=== PATIENT | female | born 1990 | race Caucasian/White ===

== ENCOUNTER 2022-10-01 11:28 | Observation (INO) | payer BC, SELFPAY ==
--- NOTE | 2022-10-01 11:58 | P.TNLD_ITS ---
Visit Information Visit Information Date of evaluation: 10/01/22 On-call OB Provider: Susan Ornelas Comments/Additional reasons for admission: 32yo at 24+w here after a fall at home. The pt reports that last night she slipped when coming down the stairs, and fell onto her right side and right shoulder. She felt a small gush of fluid immediately at the time of the fall. She denies any fluid leaking since then. She denies any abdominal pain, cramping, contractions, or vaginal bleeding since the fall. She only has mild right sided abdominal/shoulder pain. [facility] Medical History ADHD (~2000) Anxiety (~2006) Asthma (~1994) Chronic neck pain Depression, recurrent Generalized anxiety disorder PTSD (post-traumatic stress disorder) (~2006) Right wrist pain Surgical History [place] teeth removed (~2010) Family History Father Alcoholic Mental health problem Mother Anxiety Mental health problem Hypothyroidism Brother Mental health problem Sister Marfan syndrome Sister Mental health problem Grandfather History of heart disease Hyperlipidemia Hypertension Stroke Grandmother Mental health problem Grandfather History of heart disease Stroke Grandmother Diabetes mellitus Social History Smoking Status: Never smoker Evaluation Evaluation Baseline heart rate: 130 Variability: Moderate (11-25) monitor accelerations: Present Monitor Decelerations: Absent Category of Tracing: Reactive Diagnosis, Plan/Disposition Final Diagnosis (1) Ground-level fall: Status: Acute (2) 24 weeks gestation of : Status: Acute Plan/Disposition Plan: 32yo at 24+w here after a fall at home. monitoring reassuring for 4hrs, without any contractions. Amniosure negative. Pt asymptomatic. Stable for discharge home. OB Disposition: home
== END 2022-10-01 15:50 | disposition home or self-care (01) ==
PROVIDERS: Admitting Provider Family Medicine; PCP Internal Medicine; Referring Provider Family Medicine; Visit Provider Family Medicine
DX: O26.892 Other specified pregnancy related conditions, second trimester (principal); W10.9XXA Fall (on) (from) unspecified stairs and steps, initial encounter; Z3A.24 24 weeks gestation of pregnancy
CPT/HCPCS: 59025; 59050; G0378; G0379